=== PATIENT | female | born 1975 | race Caucasian/White ===

== ENCOUNTER 2017-05-18 13:15 | Emergency (ER) | payer BC, OTHER ==
[~2017-05-18] VITALS: Ht 170.2 cm; Wt 74.8 kg
[~2017-05-18 13:15] MED LIST: BCPILLS PO; LSN/10125 PO; MULTTAB58 PO; PSEU30TA64 PO
[2017-05-18 13:38] VITALS: Ht 170.2 cm; Wt 74.8 kg
[2017-05-18] MEDS ORDERED: SODIUM CHLORIDE 0.9% 1000ML 1,000 ML IV STA ×2 (13:54→15:14)
[2017-05-18] MEDS ORDERED: ACETAMINOPHEN 325 MG TAB PO STA (13:54)
[2017-05-18] MEDS ORDERED: KETOROLAC TROMETHAMINE 30 MG/ML VIAL IV STA (13:54)
--- NOTE | 2017-05-18 13:58 | EMERGENCY ROOM VISIT NOTE ---
History Report prepared by Doreen: Florencio Davis Under the Supervision of: Dr. Riya Crow M.D. First contact with patient: 13:44 Chief Complaint: PELVIC PAIN Stated Complaint: CRAMPING,BLEEDING, FEVER History of Present Illness The patient is a 42 year old female who presents to the Emergency Room with complaints of intermittent pain to her groin beginning last night. The patient states she started feeling ill yesterday morning, but she was not sure if it is because she tends to drink too much coffee. She reports she developed a fever of 101 degrees, aches, and became tired. The patient notes her pain is global, but it is focused more in her groin and the LLQ of her abdomen. She reports she tried taking Advil last night, but it did not help. She states she was evaluated by her PCP earlier this morning and had a urinalysis performed. The patient reports her UA showed she did not have an infection, and her urine had blood in it. She notes she stayed hydrated after leaving her appointment. The patient states she went to the bathroom and thought she was starting her menstrual period. She reports she acquires similar symptoms when on her menstrual period, except her fever. The patient notes she noticed brown vaginal discharge on the toilet paper after she used the restroom. She states she is not on control because her had a vasectomy. The patient reports it feels like she is going to 'leak' urine. The patient states she has a history of chronic back pain and uterine fibroids. She denies coughing, taking Tylenol or Motrin today, vomiting, diarrhea, pain with urination, and recent surgery. Source of History: patient Onset: last night Position: other (groin) Timing: intermittent Associated Symptoms: + fevers (101), + abdominal pain, No cough, No vomiting , No diarrhea Note: Associated symptoms: brown vaginal discharge, the feeling of 'leaking' urine Denies: pain with urination, recent surgery Review of Systems See HPI for pertinent positives & negatives. A total of 10 systems reviewed and were otherwise negative. Past Medical & Surgical Medical Problems: (1) Uterine fibroid Family History Patient reports no known family medical history. Social History Smoking Status: Former Smoker Drug Use: none Marital Status: Housing Status: lives with family Occupation Status: employed Current/Historical Medications Scheduled Multiple Vitamin (Multivitamin), 1 TAB PO DAILY Allergies Coded Allergies: No Known Allergies (Unverified , 05/18/17) Physical Exam Vital Signs Date Time Temp Pulse Resp B/P (MAP) Pulse Ox O2 Delivery O2 Flow Rate FiO2 05/18/17 18:27 37.3 85 18 124/79 99 Room Air 05/18/17 17:00 109 18 131/69 97 Room Air 05/18/17 15:10 37.7 116 18 123/71 96 Room Air 05/18/17 13:38 38.9 136 20 133/79 98 Room Air Physical Exam Vital signs reviewed. Patient is febrile. General: Well-appearing 42 year old female, in no significant distress. HEENT: No scleral icterus, PERRLA, neck supple. Atraumatic. No meningeal signs. Cardiovascular: Tachycardic rate and regular rhythm, no extra sounds. Pulmonary: Clear to auscultation bilaterally, normal work of breathing. Abdomen: Soft, nondistended, positive bowel sounds. Mild tenderness to palpation over the bilateral lower abdomen. No rebounding or guarding. Musculoskeletal: Atraumatic, no peripheral edema. Mild bilateral CVA tenderness. Neurologic: Patient awake alert and oriented x 3, full strength in all 4 extremities. Cranial nerves 2 through 12 grossly intact. Skin: Warm, dry, no rash Medical Decision & Procedures ER Provider Diagnostic Interpretation: PELVIC COMPLETE NON OB CLINICAL HISTORY: lower abd pain, vaginal bleeding, fever COMPARISON STUDY: 06/09/2009 FINDINGS: The uterus measured 11.2 cm. 6 cm fundal uterine fibroid.. The endometrial stripe measured not well seen. The right ovary measured not well seen due to overlying bowel content. The left ovary measured 3.2 cm maximum dimension with normal vascular flow. There is no ultrasonographic evidence of ovarian torsion. It should be noted that ovarian torsion can be present with normal Doppler ultrasonographic findings. There was no evidence of pathologic free pelvic fluid. IMPRESSION: 1. Uterine enlargement secondary to a 6 cm fundal fibroid. 2. Nonvisualization of the right ovary due to overlying bowel content. 3. Otherwise negative study 4. Endometrium is not well seen due to the compressive affects of the fibroid The above report was generated using voice recognition software. It may contain grammatical, syntax or spelling errors. Electronically signed by: Yosi Schmidt M.D. 05/18/2017 4:29 PM Dictated Date/Time: 05/18/2017 4:27 PM CHEST 2 VIEWS ROUTINE CLINICAL HISTORY: fever dyspnea COMPARISON STUDY: 04/11/2012 FINDINGS: The bones soft tissues and hemidiaphragms are normal. The cardiomediastinal silhouette is normal. The lungs are clear. The pulmonary vasculature is normal. IMPRESSION: Negative chest. The above report was generated using voice recognition software. It may contain grammatical, syntax or spelling errors. Electronically signed by: Yosi Schmidt M.D. 05/18/2017 4:27 PM Dictated Date/Time: 05/18/2017 4:25 PM Laboratory Results 05/18/17 14:10 Red Blood Count 4.37, Mean Corpuscular Volume 88.1, Mean Corpuscular Hemoglobin 30.2, Mean Corpuscular Hemoglobin Concent 34.3, Mean Platelet Volume 10.4, Neutrophils (%) (Auto) 89.2, Lymphocytes (%) (Auto) 5.4, Monocytes (%) (Auto) 5.0, Eosinophils (%) (Auto) 0.0, Basophils (%) (Auto) 0.1, Neutrophils # (Auto) 13.99, Lymphocytes # (Auto) 0.84, Monocytes # (Auto) 0.78, Eosinophils # (Auto) 0.00, Basophils # (Auto) 0.02 05/18/17 14:10 Test 05/18/17 14:00 05/18/17 14:10 Urine Test NEG (NEG) White Blood Count 15.67 K/uL (4.8-10.8) Red Blood Count 4.37 M/uL (4.2-5.4) Hemoglobin 13.2 g/dL (12.0-16.0) Hematocrit 38.5 % (37-47) Mean Corpuscular Volume 88.1 fL (80-100) Mean Corpuscular Hemoglobin 30.2 pg (25-34) Mean Corpuscular Hemoglobin Concent 34.3 g/dl (32-36) Platelet Count 230 K/uL (130-400) Mean Platelet Volume 10.4 fL (7.4-10.4) Neutrophils (%) (Auto) 89.2 % Lymphocytes (%) (Auto) 5.4 % Monocytes (%) (Auto) 5.0 % Eosinophils (%) (Auto) 0.0 % Basophils (%) (Auto) 0.1 % Neutrophils # (Auto) 13.99 K/uL (1.4-6.5) Lymphocytes # (Auto) 0.84 K/uL (1.2-3.4) Monocytes # (Auto) 0.78 K/uL (0.11-0.59) Eosinophils # (Auto) 0.00 K/uL (0-0.5) Basophils # (Auto) 0.02 K/uL (0-0.2) RDW Standard Deviation 46.4 fL (36.4-46.3) RDW Coefficient of Variation 14.3 % (11.5-14.5) Immature Granulocyte % (Auto) 0.3 % Immature Granulocyte # (Auto) 0.04 K/uL (0.00-0.02) Anion Gap 12.0 mmol/L (3-11) Est Creatinine Clear Calc Drug Dose 103.2 ml/min Estimated GFR () 113.9 Estimated GFR (Non- 98.3 BUN/Creatinine Ratio 16.1 (10-20) Calcium Level 8.9 mg/dl (8.5-10.1) Total Bilirubin 0.5 mg/dl (0.2-1) Direct Bilirubin 0.1 mg/dl (0-0.2) Aspartate Amino Transf (AST/SGOT) 15 U/L (15-37) Alanine Aminotransferase (ALT/SGPT) 15 U/L (12-78) Alkaline Phosphatase 64 U/L (45-117) Total Protein 8.4 gm/dl (6.4-8.2) Albumin 3.9 gm/dl (3.4-5.0) Influenza Type A (RT-PCR) Neg for Influ A (NEG) Influenza Type B (RT-PCR) Neg for Influ B (NEG) Laboratory results per my review. Medications Administered Medications (Trade) Dose Ordered Sig/Becky Route Start Time Stop Time Status Last Admin Dose Admin Ketorolac Tromethamine (Toradol Inj) 30 mg NOW STAT IV 05/18/17 13:54 05/18/17 13:58 DC 05/18/17 14:13 30 MG Sodium Chloride 1,000 ml @ 999 mls/hr Q1H1M STAT IV 05/18/17 13:54 05/18/17 14:54 DC 2/11/18 14:12 999 MLS/HR Acetaminophen (Tylenol Tab) 650 mg NOW STAT PO 05/18/17 13:54 05/18/17 13:58 DC 05/18/17 14:13 650 MG Sodium Chloride 1,000 ml @ 999 mls/hr Q1H1M STAT IV 05/18/17 15:14 05/18/17 16:14 DC 05/18/17 16:24 999 MLS/HR ED Course 1346: Past medical records reviewed. The patient was evaluated in room B10. A complete history and physical examination was performed. 1354: Ordered Acetaminophen 650mg PO, Sodium Chloride 1000 ml @ 999 mls/hr IV, Toradol Inj 30mg IV 1411: I reviewed the patient's UA results from [facility] this morning. The patient's UA shows no nitrates or leukocytes. Positive for blood. Urine culture is still pending. 1514: Ordered Sodium Chloride 1000 ml @ 999 mls/hr IV Medical Decision DDx: Influenza, other viral illness, pneumonia, urinary tract infection, metabolic abnormality, medication effect, cellulitis, meningitis, intra-abdominal source. This pt was evaluated and appeared to be in no distress. Pt is noted to be febrile. IV access was obtained and lab work was drawn. She was given IV toradol, hydrated with NSS. Pt was medicated with po tylenol. Pt is noted to have an elevated WBC. Influenza PCR is negative. US pelvis was performed and confirms a large uterine fibroid. Pt began to have heavy VB in ultrasound, likely to source of her abd discomfort. CT scan of the abd/pelvis was performed after discussion with the patient. Pt is concerned about the fibroid and a potential source of the fever. We did discuss the need to f/u with OBGYN regarding the heavy bleeding and large fibroid. Case was s/o to Dr Patel at change of shift pending CT. Medication Reconcilliation Current Medication List: was personally reviewed by me Blood Pressure Screening Patient's blood pressure: Normal blood pressure Blood pressure disposition: Did not require urgent referral Impression Primary Impression: Influenza-like illness Additional Impressions: Uterine fibroid Vaginal bleeding Scribe Attestation The scribe's documentation has been prepared under my direction and personally reviewed by me in its entirety. I confirm that the note above accurately reflects all work, treatment, procedures, and medical decision making performed by me. Departure Information Referrals Krishna Hanson M.D.(NONA) (PCP) Patient Instructions My [facility] Problem Qualifiers
[2017-05-18 14:32] LABS: HEMATOCRIT 38.5 % (37-47); HEMOGLOBIN 13.2 g/dL (12.0-16.0); MEAN CELL VOLUME 88.1 fL (80-100); MEAN CORPUSCULAR HEMOGLOBIN 30.2 pg (25-34); MEAN CORPUSCULAR HGB CONC 34.3 g/dl (32-36); MEAN PLATELET VOLUME 10.4 fL (7.4-10.4); PLATELET COUNT 230 K/uL (130-400); RED CELL DISTRIBUTION WIDTH CV 14.3 % (11.5-14.5); RED CELL DISTRIBUTION WIDTH SD 46.4 fL (36.4-46.3); WHITE BLOOD COUNT 15.67 K/uL (4.8-10.8)
[2017-05-18 14:47] LABS: ALBUMIN 3.9 gm/dl (3.4-5.0); CALCIUM 8.9 mg/dl (8.5-10.1); CREATININE 0.75 mg/dl (0.60-1.20); POTASSIUM 3.6 mmol/L (3.5-5.1)
[2017-05-18 14:50] LABS: TOTAL PROTEIN 8.4 gm/dl (6.4-8.2)
[2017-05-18 14:53] LABS: BASO % 0.1 %; BASO ABS # 0.02 K/uL (0-0.2); IG# 0.04 K/uL (0.00-0.02); LYMPH % 5.4 %; LYMPH ABS # 0.84 K/uL (1.2-3.4); MONO ABS # 0.78 K/uL (0.11-0.59); NEUT % 89.2 %; NEUT ABS # 13.99 K/uL (1.4-6.5)
[2017-05-18 15:23] LABS: INFLUENZA A PCR Neg for Influ A (NEG); INFLUENZA B PCR Neg for Influ B (NEG)
--- NOTE | 2017-05-18 16:28 | DIAGNOSTIC IMAGING REPORT ---
CHEST 2 VIEWS ROUTINE CLINICAL HISTORY: fever dyspnea COMPARISON STUDY: 04/11/2012 FINDINGS: The bones soft tissues and hemidiaphragms are normal. The cardiomediastinal silhouette is normal. The lungs are clear. The pulmonary vasculature is normal. IMPRESSION: Negative chest. The above report was generated using voice recognition software. It may contain grammatical, syntax or spelling errors. Electronically signed by: Yosi Schmidt M.D. 05/18/2017 4:27 PM Dictated Date/Time: 05/18/2017 4:25 PM
--- NOTE | 2017-05-18 16:30 | DIAGNOSTIC IMAGING REPORT ---
PELVIC COMPLETE NON OB CLINICAL HISTORY: lower abd pain, vaginal bleeding, fever COMPARISON STUDY: 06/09/2009 FINDINGS: The uterus measured 11.2 cm. 6 cm fundal uterine fibroid.. The endometrial stripe measured not well seen. The right ovary measured not well seen due to overlying bowel content. The left ovary measured 3.2 cm maximum dimension with normal vascular flow. There is no ultrasonographic evidence of ovarian torsion. It should be noted that ovarian torsion can be present with normal Doppler ultrasonographic findings. There was no evidence of pathologic free pelvic fluid. IMPRESSION: 1. Uterine enlargement secondary to a 6 cm fundal fibroid. 2. Nonvisualization of the right ovary due to overlying bowel content. 3. Otherwise negative study 4. Endometrium is not well seen due to the compressive affects of the fibroid The above report was generated using voice recognition software. It may contain grammatical, syntax or spelling errors. Electronically signed by: Yosi Schmidt M.D. 05/18/2017 4:29 PM Dictated Date/Time: 05/18/2017 4:27 PM
[2017-05-18] MEDS ORDERED: OPTIRAY 320 IV PRN (17:00)
--- NOTE | 2017-05-18 17:32 | DIAGNOSTIC IMAGING REPORT ---
ABD/PELVIS IV CONTRAST ONLY CT DOSE: 391.37 mGy.cm HISTORY: Pain lower abd pain, heavy vaginal bleeding, WBC, fever, TECHNIQUE: Multiaxial CT images of the abdomen and pelvis were performed following the use of intravenous contrast. A dose lowering technique was utilized adhering to the principles of ALARA. COMPARISON STUDY: Ultrasound same date FINDINGS: Lung bases are clear. Study is compromised due to the absence of oral contrast. Liver spleen and pancreas are uniform. Kidneys enhance uniformly. There are negative for hydronephrosis. Abdominal and pelvic bowel pattern is considered nonobstructive. There is a 6 cm uterine fibroid at the superior aspect of the uterine fundus and body. Medially lateral to the fibroid best seen on transaxial image 61 is what appears to be a somewhat prominent heterogeneous right ovary. This region was not identified ultrasonically due to overlying bowel. This potentially relates to an enlarged complex right ovary versus unopacified bowel loops. Bladder is midline. There is no free fluid within the pelvic cul-de-sac. Osseous structures are remarkable for minimal degenerative change. IMPRESSION: 1. Limited study due to the absence of oral contrast. 2. Unopacified bowel versus a moderately complex enlarged right ovary measuring 5 x 4 cm. 3. 6 cm uterine fibroid. 4. Otherwise negative study. The above report was generated using voice recognition software. It may contain grammatical, syntax or spelling errors. Electronically signed by: Yosi Schmidt M.D. 05/18/2017 5:30 PM Dictated Date/Time: 05/18/2017 5:23 PM
--- NOTE | 2017-05-18 18:14 | EMERGENCY ROOM VISIT NOTE ---
ED Visit Note First contact with patient: 16:52 Pt signed out to me by Dr. Crow awaiting CT a/p. 181: Discussed with pt at bedside all results. CT shows uterine fibroid also previously noted on ultrasound, right ovary not visualized due to overlying bowel gas, no other acute GI//vascular abnormalities noted. Pt verbalized understanding and was agreeable with plan. Pt states fever noted earlier today was felt to be viral syndrome by her PCP whom she saw earlier today. Discussed with her sx to watch/return for, f/u with her pcp and with echo technician regarding possible treatment option for her abnormal and heavy menstrual cycles and known fibroid. Pt comfortable and well appearing at time of dc. Verbalized understanding of all results and plan.
[2017-05-18 18:27] VITALS: BP 124/79; PULSE 85; TEMP 37.3; O2SAT 99
== END 2017-05-18 18:55 | disposition home or self-care (01) ==
LOC: C.EDB 13:16
DX: J10.1 Influenza due to other identified influenza virus with other respiratory manifestations (principal); D25.9 Leiomyoma of uterus, unspecified; R00.0 Tachycardia, unspecified; R10.32 Left lower quadrant pain; N89.8 Other specified noninflammatory disorders of vagina; Z87.891 Personal history of nicotine dependence